=== PATIENT | female | born 1950 ===

== ENCOUNTER 2019-03-20 09:43 | Outpatient (CLI) | payer OTHER ==
[2019-03-23] MEDS ORDERED: VASOTEC10 MG PO (09:54)
[2019-03-23] MEDS ORDERED: NEURONTIN300 MG PO (09:54)
[2019-03-23] MEDS ORDERED: VOLTAREN100 GM TOP (09:56)
== END 2019-03-20 09:54 | disposition home or self-care (01) ==
LOC: RAD 09:43
DX: Z01.818 Encounter for other preprocedural examination (principal)

== ENCOUNTER 2019-03-20 10:36 | Outpatient (CLI) | payer OTHER ==
[2019-03-23] MEDS ORDERED: VASOTEC10 MG PO (09:54)
[2019-03-23] MEDS ORDERED: NEURONTIN300 MG PO (09:54)
[2019-03-23] MEDS ORDERED: VOLTAREN100 GM TOP (09:56)
== END 2019-03-20 10:45 | disposition home or self-care (01) ==
LOC: EKG 10:36
DX: I10 Essential (primary) hypertension (principal)

== ENCOUNTER 2019-03-30 05:10 | Day surgery (SDC) | payer OTHER ==
[~2019-03-30 05:10] MED LIST: NEURONTIN300 MG PO; VASOTEC10 MG PO; VOLTAREN100 GM TOP
[2019-03-30] MEDS ORDERED: TRAM1TAB98 PO (08:42)
[2019-03-30] MEDS ORDERED: DUI500 PO (08:42)
== END 2019-03-30 11:20 | disposition home or self-care (01) ==
LOC: CIR.AMB 05:10
DX: M23.321 Other meniscus derangements, posterior horn of medial meniscus, right knee (principal); M65.861 Other synovitis and tenosynovitis, right lower leg